=== PATIENT | female | born 2005 | race African-American/Black ===

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

== ENCOUNTER 2023-02-18 23:25 | Emergency (ER) | payer OTHER ==
[~2023-02-18] VITALS: Ht 157.5 cm; Wt 61.0 kg
[2023-02-18 23:44] VITALS: BP 122/79; O2SAT 98
[2023-02-19] MEDS ORDERED: BO1 TP (01:21)
[2023-02-19] MEDS ORDERED: AMOX1TAB16 MT (01:23)
[2023-02-19] MEDS ORDERED: TETANUS, DIPHTHERIA, PERTUSSIS VAC/PF 0.5ML (>10YR OLD) IM ONE ×2 (01:30)
[2023-02-19 01:42] VITALS: PULSE 95; RESP 16; TEMP 98.3
== END 2023-02-19 01:49 | disposition home or self-care (01) ==
LOC: ER 23:25
DX: S71.112A Laceration without foreign body, left thigh, initial encounter (principal); F41.9 Anxiety disorder, unspecified; X58.XXXA Exposure to other specified factors, initial encounter; Y93.89 Activity, other specified; Y92.89 Other specified places as the place of occurrence of the external cause; Y99.8 Other external cause status
CPT/HCPCS: 12001; 99283; 90715; 90471; Z7610

== ENCOUNTER 2024-08-16 22:49 | Emergency (ER) | payer OTHER ==
[~2024-08-16] VITALS: Ht 162.6 cm; Wt 51.0 kg
[~2024-08-16 22:49] MED LIST changes: +AMOX1TAB16 MT; +BO1 TP
[2024-08-16 23:05] VITALS: O2SAT 99
[2024-08-17] MEDS: ACETAMINOPHEN 500MG TABLET PO ONE (00:11)
[2024-08-17 00:15] VITALS: BP 117/84; PULSE 95; RESP 20; TEMP 36.7; O2SAT 99
[2024-08-17 01:12] LABS: CLARITY URINE CLOUDY (CLEAR); COLOR URINE YELLOW (YELLOW); GLUCOSE URINE NEGATIVE (NEGATIVE); KETONES URINE TRACE (NEGATIVE); LEUKOCYTE ESTERASE URINE 2+ (NEGATIVE); NITRITE URINE POSITIVE (NEGATIVE); OCCULT BLOOD URINE NEGATIVE (NEGATIVE); PROTEIN URINE TRACE (NEGATIVE); SPECIFIC GRAVITY URINE 1.019 (1.005-1.030)
[2024-08-17] MEDS ORDERED: ACET-2708 MT (01:14)
[2024-08-17 01:39] LABS: SQUAMOUS EPITHELIAL CELL URINE 3+ /lpf (RARE/1+)
[2024-08-17 01:40] LABS: RBC URINE 0-2 /hpf (0-2); WBC URINE 15-25 /hpf (0-2)
[2024-08-17 01:41] LABS: BACTERIA URINE 2+
== END 2024-08-17 01:11 | disposition home or self-care (01) ==
LOC: ER 22:49
DX: M54.50 Low back pain, unspecified (principal); J45.909 Unspecified asthma, uncomplicated; M25.569 Pain in unspecified knee; M54.2 Cervicalgia; Z79.899 Other long term (current) drug therapy
CPT/HCPCS: 81003; 81025; 87077; 87186; 99284